=== PATIENT | male | born 1945 | race Two or more races ===

== ENCOUNTER 2018-02-05 08:51 | Outpatient (RCR) | payer MEDICARE, MEDICAID | END 2018-02-23 | disposition home or self-care (01) | LOC: WCC 08:51 | DX: L98.491 Non-pressure chronic ulcer of skin of other sites limited to breakdown of skin (principal); L80 Vitiligo; E11.9 Type 2 diabetes mellitus without complications; I10 Essential (primary) hypertension | CPT/HCPCS: G0463 ==